=== PATIENT | female | born 1990 | race Caucasian/White ===

== ENCOUNTER 2020-01-25 23:05 | Emergency (ER) | payer BC, MEDICAID, SELFPAY ==
[2020-01-25 23:14] VITALS: BP 149/84; PULSE 117; RESP 18; TEMP 38.3; O2SAT 97; BMI 21.2
--- NOTE | 2020-01-26 00:19 | USR_ITS ---
PROCEDURE INFORMATION: Exam: US Nonobstetric Pelvis; Complete Exam date and time: 01/26/2020 1:18 AM Age: 29 years old Clinical indication: Other: Chills, fever, and tachycardia; Additional info: 1 mo post ; Fever/tachycardia/pain TECHNIQUE: Imaging protocol: Transabdominal pelvic nonobstetric ultrasound. Complete exam. Real time ultrasound with image documentation. COMPARISON: No relevant prior studies available. FINDINGS: Uterus/cervix: The uterus measures 7.5 x 4.0 x 5.3 cm. The endometrium measures 4 mm. Right adnexa: The right ovary measures 2.5 x 1.3 x 1.9 cm. Vascular flow is demonstrated within the right ovary with color Doppler and duplex waveform sonography. PSV 11.5 cm/s, RI 0.44. Left adnexa: The left ovary measures 2.5 x 1.8 x 2.2 cm. Vascular flow is demonstrated within the left ovary with color Doppler and duplex waveform sonography. PSV 15.4 cm/s, RI 0.50. Free fluid: None. Bladder: Normal. US/US pelvic complete* [id number] IMPRESSION: There are no acute pelvic findings.
[2020-01-26 00:46] LABS: Alanine Aminotransferase 17 U/L (0-33); Albumin Level 4.6 g/dL (3.5-5.2); Alkaline Phosphatase 103 IU/L (35-105); Anion Gap 17.1 (5-19); Aspartate Amino Transferase 16 U/L (0-32); Blood Urea Nitrogen 14 mg/dL (6-20); Calcium 9.3 mg/dL (8.5-10.5); Carbon Dioxide 24 mmol/L (22-29); Chloride 99 mmol/L (98-107); Globulin 2.9 g/dL (1.3-4.6); Glomerular Filtration Rate 100.4 mL/min (90-130); Glucose 131 mg/dL (65-115); Osmolality Calculated 280 mOsm/kg (285-295); Potassium 4.1 mmol/L (3.5-5.1); Sodium 136 mmol/L (136-145); Total Bilirubin 0.3 mg/dL (0.15-1.2); Total Protein 7.5 g/dL (6.6-8.7)
[2020-01-26 00:47] LABS: Basophils % 0.2 %; Eosinophils # 0.2 10^3/uL (0.0-0.8); Eosinophils % 1.1 %; Hematocrit 36.3 % (37.0-47.0); Hemoglobin 11.2 g/dL (11.5-15.3); Lactate (Lactic Acid level) 1.9 mmol/L (0.5-2.2); Lymphocytes # 1.7 10^3/uL (0.8-4.8); Lymphocytes % 9.9 %; Mean Corpuscular HGB Conc 30.9 g/dL (30.0-36.0); Mean Corpuscular Hemoglobin 28.3 pg (28.0-34.0); Mean Corpuscular Volume 91.7 fL (81-99); Mean Platelet Volume 9.2 fL (7.4-10.4); Neutrophils # 13.8 10^3/uL (1.8-7.7); Neutrophils % 82.4 %; Nucleated Red Blood Cells % 0 %; Platelet Count 332 10^3/cmm (130-400); Red Blood Count 3.96 10^6/uL (4.1-5.3); Red Cell Distribution Width 14.9 % (12.1-15.1); White Blood Count 16.8 10^3/uL (4.0-10.0)
[2020-01-26 00:58] LABS: HCG, Serum Qual Negative (Negative)
--- NOTE | 2020-01-26 01:22 | CTR_ITS ---
PROCEDURE INFORMATION: Exam: CT Abdomen And Pelvis With Contrast Exam date and time: 01/26/2020 1:56 AM Age: 29 years old Clinical indication: Fever; Abdominal pain; Generalized; Patient HX: PT is 1 month ; Additional info: Abdominal pain/post ; Febrile, tachy TECHNIQUE: Imaging protocol: Computed tomography of the abdomen and pelvis with intravenous contrast. Radiation optimization: All CT scans at this facility use at least one of these dose optimization techniques: automated exposure control; mA and/or kV adjustment per patient size (includes targeted exams where dose is matched to clinical indication); or iterative reconstruction. Contrast material: OMNIK 300; Contrast volume: 75 ml; Contrast route: 20G; COMPARISON: US transvaginal [id number] 01/26/2020 1:00 AM FINDINGS: Liver: Normal. No mass. Gallbladder and bile ducts: Normal. No calcified stones. No ductal dilation. Pancreas: Normal. No ductal dilation. Spleen: Normal. No splenomegaly. Adrenals: Normal. No mass. Kidneys and ureters: There is mild hydronephrosis and hydroureter seen on the right. There are no obstructing ureteral calculi seen. Some subtle hypoperfusion is seen in the upper pole of the left kidney. This finding raises some suspicion for pyelonephritis. Stomach and bowel: Unremarkable. No obstruction. No mucosal thickening. Appendix: No evidence of appendicitis. Intraperitoneal space: Unremarkable. No free air. No significant fluid collection. Vasculature: Unremarkable. No abdominal aortic aneurysm. Lymph nodes: Unremarkable. No enlarged lymph nodes. Bladder: Unremarkable as visualized. Reproductive: Unremarkable as visualized. Bones/joints: Unremarkable. No acute fracture. Soft tissues: Unremarkable. CT/CT abdomen pelvis w con* [id number] IMPRESSION: 1. Subtle hypoperfusion seen in the upper pole of the left kidney, findings that raise some suspicion for pyelonephritis. 2. There is mild hydronephrosis and hydroureter present on the right without evidence of obstructing ureteral calculi. Total DLP: 562.06 mGy-cm Radiation Dose CTDIVOL = (mGy): DLP = 562.06 (mGy-cm)
[2020-01-26 01:37] VITALS: BP 116/68; PULSE 101; RESP 16; O2SAT 97
[2020-01-26] MEDS: sodium chloride 0.9% 1,000 ML 999 ML IV (01:37)
[2020-01-26 02:05] VITALS: BP 123/69; PULSE 78; RESP 18; O2SAT 96
--- NOTE | 2020-01-26 02:06 | PC.NURSE ---
DR WHIPPLE IN ROOM, FLUIDS INFUSING, AT BEDSIDE. CONTINUE TO MONITOR
[2020-01-26] MEDS: iohexol 300 mg/mL 100 mL Btl IV (02:17)
[2020-01-26 03:24] VITALS: BP 131/70; PULSE 99; RESP 18; TEMP 37.6; O2SAT 100
[2020-01-26 03:50] LABS: Add Urine Microscopic? NO
[2020-01-26 03:57] LABS: Bilirubin Urine Neg (NEGATIVE); Blood Urine Neg (Negative); Glucose Urine UA Norm (Normal); Ketones Urine Negative (Negative); Leukocyte Esterase Urine 1+ (Negative); Nitrate Urine Negative (Negative); Protein Urine Neg (Negative); Urine Color Yellow (Yellow); Urobilinogen Urine Norm (Negative); pH Urine 6 (5-7)
[2020-01-26] MEDS: ketorolac 30 mg/mL INJ IVP (04:01)
[2020-01-26 04:02] VITALS: RESP 18
[2020-01-26] MEDS: cefTRIAXone 1,000 MG in sodium chloride 0.9% (plus) 50 ML 100 MG IV (04:02)
[2020-01-26] MEDS: morphine 4 mg/mL SDV 1 mL IVP (04:02)
[2020-01-26 04:10] VITALS: BP 118/62; PULSE 80; RESP 16; O2SAT 97
[2020-01-26 04:42] VITALS: BP 118/62; PULSE 106; RESP 16; TEMP 37.7; O2SAT 96
--- NOTE | 2020-01-26 17:28 | W.ED.FEVER ---
HPI - Fever General: Chief Complaint: Fever Stated Complaint: poss infection post Time Seen by Provider: 01/26/20 01:44 History of Present Illness: HPI Narrative: 29-year-old female who delivered vaginally 4 weeks ago. She states that she got over 70 stitches to her perineum after significant tearing. She has had no bleeding or discharge from this area. She is worried because she has had some belly pain, mainly right-sided, and a fever this evening. This is increased from prior MD elicited complaint: fever and weakness Measured temperature: 101.5 F Relieving factors: ibuprofen Associated symptoms: Reports abdominal pain, chills, dysuria and nausea; Deny chest pain, cough, headache(s), nasal congestion, rash, stiffness or vaginal discharge Review of Systems Const: Reports: fever(s) and chills Eyes: Denies: change in vision or blurry vision ENMT: Denies: nasal congestion Card: Denies: chest pain, palpitations or irregular heart rhythm Resp: Denies: dyspnea, productive cough, non-productive cough or wheezing GI: Reports: abdominal pain and nausea : Reports: dysuria; Denies: vaginal discharge Musc: Reports: back pain; Denies: neck pain, joint redness or joint warmth Skin/Breast: Denies: rash, pruritus or erythema Neuro: Denies: headache(s), dizziness or vertigo Psych: Denies: anxiety PFSH ED PFSH: Social History Smoking and tobacco status: never smoked Physical Exam Const: GENERAL APPEARANCE: well developed ORIENTATION/CONSCIOUSNESS: Yes oriented to person, Yes oriented to place and Yes oriented to time HENMT: COMMON NORMALS: normocephalic, external ears normal and Normal external nose present HEAD & SCALP: normocephalic FACE & SINUS: normal facial exam NOSE: Normal external nose present and No nasal discharge present EXTERNAL EAR: Yes external ears normal MOUTH: tongue normal Eye: COMMON NORMALS: Equal, round and reactive pupils present, EOMs intact bilaterally and conjunctivae normal EYELID: eyelids normal CONJUNCTIVA: Yes conjunctivae normal PUPIL: Yes Equal, round and reactive pupils present Neck/C-Spine: COMMON NORMALS: full ROM GENERAL: No tracheal deviation Chest: COMMONS NORMALS: normal inspection of the chest CHEST: No tenderness Resp: COMMON NORMALS: clear to auscultation bilaterally EFFORT & INSPECTION: No tachypneic, No respiratory distress, No retractions, No uses accessory muscles and No tracheal deviation AUSCULTATION: clear to auscultation bilaterally, no rhonchi, no wheezes and lung sounds not diminished Cardio: COMMON NORMALS: regular rate and regular rhythm RATE: regular rate RHYTHM: regular rhythm HEART SOUNDS: no murmurs PERIPHERAL PULSES: radial pulses present GI: INSPECTION: No abdominal distension AUSCULTATION: No Hyperactive bowel sounds present and No Hypoactive bowel sounds present PALPATION: Yes Tenderness to palpation present (GI) (Suprapubic and right lower quadrant), No Guarding due to palpation present (GI) and No Rigid due to palpation PERCUSSION: no dullness to percussion and no tympanic to percussion : BLADDER/KIDNEY EXAM: Yes CVA tenderness Back/Pelvis: GENERAL BACK: Yes CVA tenderness CVA tenderness: right Neuro: SENSORIUM/ORIENTATION: Yes oriented to person, Yes oriented to place and Yes oriented to time Psych: COMMON NORMALS: mental status grossly normal Skin: COMMON NORMALS: no rashes or lesions noted GENERAL SKIN EXAM: no rashes or lesions noted Course Vital Signs: Vital signs: Vital Signs Temperature 99.9 F H 01/26/20 04:42 Pulse Rate 106 H 01/26/20 04:42 Respiratory Rate 16 01/26/20 04:42 Blood Pressure 118/62 01/26/20 04:42 Pulse Oximetry 96 01/26/20 04:42 MDM - Fever MDM Narrative: Medical decision making narrative: 29-year-old female vaginal delivery at 4 weeks. She presents with a significant fever and chills. She has some belly pain as well. The concern was initially for retained products of conception, ultrasound was essentially negative for this. She is also had no vaginal bleeding or discharge. Examination of her perineum revealed no evidence of infection with her repair. CT reveals no inflammatory changes around the uterus. There is inflammatory change however around the right kidney suggestive of pyelonephritis. Urinalysis reveals a urinary tract infection. She is not vomiting. She has had 1 g of Rocephin and some fluid here. She is feeling improved. She will go home on cefdinir. Lab Data: Labs: Lab Results 01/26/20 01/26/20 01/26/20 Range/Units 00:20 00: 00:20 WBC 16.8 H (4.0-10.0) 10^3/ uL RBC 3.96 L (4.1-5.3) 10^6/u L Hgb 11.2 L (11.5-15.3) g/dL Hct 36.3 L (37.0-47.0) % MCV 91.7 (81-99) fL MCH 28.3 (28.0-34.0) pg MCHC 30.9 (30.0-36.0) g/dL RDW 14.9 (12.1-15.1) % Plt Count 332 (130-400) 10^3/c mm MPV 9.2 (7.4-10.4) fL Neut % (Auto) 82.4 % Lymph % (Auto) 9.9 % [place] % (Auto) 6.0 % Eos % (Auto) 1.1 % Baso % (Auto) 0.2 % Neut # (Auto) 13.8 H (1.8-7.7) 10^3/u L Lymph # (Auto) 1.7 (0.8-4.8) 10^3/u L [place] # (Auto) 1.0 H (0.2-0.9) 10^3/u L Eos # (Auto) 0.2 (0.0-0.8) 10^3/u L Baso # (Auto) 0.0 (0.0-0.1) 10^3/u L Nucleated RBC % (a uto) 0 % Nucleated RBCs # 0.0 /100WBC Sodium 136 (136-145) mmol/L Potassium 4.1 (3.5-5.1) mmol/L Chloride 99 (98-107) mmol/L Carbon Dioxide 24 (22-29) mmol/L Anion Gap 17.1 (5-19) BUN 14 (6-20) mg/dL Creatinine 0.7 (0.5-0.9) mg/dL GFR Calculation 100.4 (90-130) mL/min Glucose 131 H (65-115) mg/dL Calculated Osmolal ity 280 L (285-295) mOsm/k g Lactate 1.9 (0.5-2.2) mmol/L Calcium 9.3 (8.5-10.5) mg/dL Total Bilirubin 0.3 (0.15-1.2) mg/dL AST 16 (0-32) U/L ALT 17 (0-33) U/L Alkaline Phosphata se 103 (35-105) IU/L Total Protein 7.5 (6.6-8.7) g/dL Albumin 4.6 (3.5-5.2) g/dL Globulin 2.9 (1.3-4.6) g/dL HCG, Qual (Negative) Urine Color (Yellow) Urine Appearance (CLEAR) Urine pH (5-7) Ur Specific Gravit y (1.005-1.030) Urine Protein (Negative) Urine Glucose (UA) (Normal) Urine Ketones (Negative) Urine Blood (Negative) Urine Nitrate (Negative) Urine Bilirubin (NEGATIVE) Urine Urobilinogen (Negative) mg/dL Ur Leukocyte [place] ase (Negative) 01/26/20 01/26/20 Range/Units 00:20 03:30 WBC (4.0-10.0) 10^3/ uL RBC (4.1-5.3) 10^6/u L Hgb (11.5-15.3) g/dL Hct (37.0-47.0) % MCV (81-99) fL MCH (28.0-34.0) pg MCHC (30.0-36.0) g/dL RDW (12.1-15.1) % Plt Count (130-400) 10^3/c mm MPV (7.4-10.4) fL Neut % (Auto) % Lymph % (Auto) % [place] % (Auto) % Eos % (Auto) % Baso % (Auto) % Neut # (Auto) (1.8-7.7) 10^3/u L Lymph # (Auto) (0.8-4.8) 10^3/u L [place] # (Auto) (0.2-0.9) 10^3/u L Eos # (Auto) (0.0-0.8) 10^3/u L Baso # (Auto) (0.0-0.1) 10^3/u L Nucleated RBC % (a uto) % Nucleated RBCs # /100WBC Sodium (136-145) mmol/L Potassium (3.5-5.1) mmol/L Chloride (98-107) mmol/L Carbon Dioxide (22-29) mmol/L Anion Gap (5-19) BUN (6-20) mg/dL Creatinine (0.5-0.9) mg/dL GFR Calculation (90-130) mL/min Glucose (65-115) mg/dL Calculated Osmolal ity (285-295) mOsm/k g Lactate (0.5-2.2) mmol/L Calcium (8.5-10.5) mg/dL Total Bilirubin (0.15-1.2) mg/dL AST (0-32) U/L ALT (0-33) U/L Alkaline Phosphata se (35-105) IU/L Total Protein (6.6-8.7) g/dL Albumin (3.5-5.2) g/dL Globulin (1.3-4.6) g/dL HCG, Qual Negative (Negative) Urine Color Yellow (Yellow) Urine Appearance Sl cloudy A (CLEAR) Urine pH 6 (5-7) Ur Specific Gravit y 1.010 (1.005-1.030) Urine Protein Neg (Negative) Urine Glucose (UA) Norm (Normal) Urine Ketones Negative (Negative) Urine Blood Neg (Negative) Urine Nitrate Negative (Negative) Urine Bilirubin Neg (NEGATIVE) Urine Urobilinogen Norm (Negative) mg/dL Ur Leukocyte [place] ase 1+ H (Negative) Discharge Plan Discharge Patient Disposition: Home, Self-Care Clinical Impression: Pyelonephritis Condition: Stable Prescriptions: New cefdinir 300 mg capsule 300 mg PO BID 7 Days Qty: 14 RF: 0 [place] 7.5-325 mg tablet 1 tab PO Q8H PRN (Reason: pain) Qty: 10 RF: 0 No Action ibuprofen 800 mg Tablet 800 mg PO Q8H PRN (Reason: Pain) RF: 0 acetaminophen 500 mg Tablet 500 mg PO Q8H PRN (Reason: Pain) RF: 0 ferrous sulfate 325 mg (65 mg iron) Tablet 325 mg PO BID RF: 0 oxycodone 5 mg Tablet 5 mg PO Q6H PRN (Reason: Pain) RF: 0 Discharge Orders: Discharge Order (Routine); Ordered 01/26/20 Ordered By: Ronaldo Noble Referrals: Mari Cline DO [Primary Care Provider] - 4-7 days Discharge Diet: Advance as tolerated Discharge Activity: Increase activity as tolerated Patient Instructions: Acute Pyelonephritis (ED) Activity Restrictions/Additional Instructions: Return for fever greater than 100 despite 2-3 doses of antibiotics, worsening pain despite treatment, brisk vaginal bleeding or discharge, vomiting liquids or medications, other concerning symptoms. Discharge Date/Time: 01/26/20 04:44 Coding Level of Care Code ED Telephone Service Adviser for Yaz Fwd Exam Comprehensive
== END 2020-01-26 04:44 | disposition home or self-care (01) ==
PROVIDERS: Physician Assistant; Emergency Provider Emergency Medicine; PCP Family Medicine
DX: N12 Tubulo-interstitial nephritis, not specified as acute or chronic (principal)
CPT/HCPCS: 12345; 74177; 76856; 80053; 81003; 83605; 84703; 85025; 87040; 96365; 96375; 99283; 99284; J0696; J1885; J2270; J7030; Q9967

== ENCOUNTER → 2020-05-19 18:00 | Outpatient (BNVA) | payer BC, MEDICAID, SELFPAY | PROVIDERS: PCP Family Medicine; Visit Provider Nurse Practitioner Family | DX: Z20.828 Contact with and (suspected) exposure to other viral communicable diseases (principal) | CPT/HCPCS: 87635 ==

== ENCOUNTER 2021-01-31 22:04 | Emergency (ER) | payer BC, MEDICAID, SELFPAY ==
[2021-01-31 22:38] VITALS: BP 119/76; PULSE 74; RESP 16; TEMP 37; O2SAT 97; BMI 19.5
--- NOTE | 2021-01-31 23:28 | ED_ITS ---
HPI - Wound/Laceration General: Chief Complaint: Wound/Laceration Stated Complaint: bite LLE Time Seen by Provider: 01/31/21 23:28 History of Present Illness: HPI narrative: Patient is a 30-year-old female comes to the ED with possible spider bite to left leg. Patient noticed pain redness and swelling on posterior aspect of left thigh just above knee around 5 PM tonight. She did not see any insect or spider bite her. She denies any other symptoms currently. Denies any past history of MRSA or staph infections. Associated symptoms: Denies chills, fever(s), nausea or vomiting Review of Systems Const: Denies: fever(s), chills or fatigue Eyes: Denies: change in vision or eye discomfort ENMT: Denies: throat pain, odynophagia, nasal discharge or nasal congestion Card: Denies: chest pain, palpitations, edema, swelling of feet/ankles, dyspnea on exertion or orthopnea Resp: Denies: dyspnea, productive cough or non-productive cough GI: Denies: abdominal pain, nausea, vomiting, diarrhea, constipation or hematochezia : Denies: flank pain, dysuria or hematuria Musc: Denies: neck pain, back pain or extremity swelling Skin/Breast: Reports: new lesions (Possible spider bite to left thigh); Denies: rash Neuro: Denies: headache(s), numbness in extremities or weakness in extremities PFSH ED PFSH: Social History Smoking and tobacco status: never smoked Female Reproductive History: Date of last menstrual period: 01/01/21 Physical Exam Const: COMMON NORMALS: no acute distress, patient oriented x3, healthy appearing and alert GENERAL APPEARANCE: cooperative and comfortable HENMT: COMMON NORMALS: normocephalic HEAD & SCALP: normocephalic MOUTH: Normal oral and palatal mucosa present THROAT: posterior oropharynx normal and uvula midline Neck/C-Spine: COMMON NORMALS: supple GENERAL: Yes normal visual inspection Resp: COMMON NORMALS: normal respiratory effort, No retractions, No use of accessory muscles and clear to auscultation bilaterally AUSCULTATION: clear to auscultation bilaterally Cardio: COMMON NORMALS: regular rate, regular rhythm, S1 normal heart sound present, S2 normal heart sound present, No gallops present (Cardio), No clicks present (Cardio), No murmurs present (Cardio) and Peripheral pulses 2+ througho ut RATE: regular rate RHYTHM: regular rhythm HEART SOUNDS: S1 normal heart sound present and S2 normal heart sound present PERIPHERAL PULSES: Peripheral pulses 2+ throughout GI: COMMON NORMALS: Normal to inspection, nondistended, normoactive bowel sounds present, Soft to palpation, non-tender and no masses PALPATION: Yes Soft to palpation : COMMON NORMALS: Yes no CVA tenderness BLADDER/KIDNEY EXAM: Yes no CVA tenderness Back/Pelvis: COMMON NORMALS: no CVA tenderness Extremity: NARRATIVE EXTREMITY EXAM: Left leg?posterior aspect of thigh just superior to knee?patient has a raised erythemic rash that is circular in shape. The middle of rash has some slight ecchymosis and possible small puncture wound. Rashes tender upon palpation but no warmth or purulent drainage noted. Findings suggestive of brown recluse bite with no cellulitis developing yet. GENERAL: Yes normal exam except as noted Neuro: COMMON NORMALS: patient oriented x3 and moves all extremities SENSORIUM/ORIENTATION: Yes alert Skin: NARRATIVE SKIN EXAM: Left leg?posterior aspect of thigh just superior to knee?patient has a raised erythemic rash that is circular in shape. The middle of rash has some slight ecchymosis and possible small puncture wound. Rashes tender upon palpation but no warmth or purulent drainage noted. Findings suggestive of brown recluse bite with no cellulitis developing yet. Course Vital Signs: Vital signs: Vital Signs Temperature 98.6 F 01/31/21 22:38 Pulse Rate 74 01/31/21 22:38 Respiratory Rate 16 01/31/21 22:38 Blood Pressure 119/76 01/31/21 22:38 Pulse Oximetry 97 01/31/21 22:38 MDM - Wound/Laceration MDM Narrative: Medical decision making narrative: Patient is a 30-year-old female in no acute distress or pain. Her vitals are stable. Exam findings suggestive of brown recluse spider bite on left leg. Patient was discharged home with a prescription for Bactrim. Return to ED precautions given. Follow- up with PCP in 7 to 10 days reevaluation. Patient understood with plan. Discharge Plan Discharge Patient Disposition: Home Clinical Impression: Brown recluse spider bite Qualifiers: Encounter type: initial encounter Injury intent: accidental or unintentional Qualified Code(s): T63.331A - Toxic effect of venom of brown recluse spider, accidental (unintentional), initial encounter Condition: Stable Prescriptions: New Bactrim DS 800-160 mg tablet 1 tab PO BID 7 Days Qty: 14 RF: 0 No Action control PO RF: 0 ibuprofen 800 mg Tablet 800 mg PO Q8H PRN (Reason: Pain) RF: 0 ferrous sulfate 325 mg (65 mg iron) Tablet 325 mg PO BID RF: 0 oxycodone 5 mg Tablet 5 mg PO Q6H PRN (Reason: Pain) RF: 0 Discharge Orders: Discharge ED (Routine); Ordered 01/31/21 Ordered By: River Oliva Referrals: Mari Cline DO [Primary Care Provider] - Discharge Diet: Regular Discharge Activity: Resume usual activity Patient Instructions: Brown Recluse Spider Bite (ED) Activity Restrictions/Additional Instructions: Follow-up with medical provider as directed in 7 days for reevaluation. Take medications as prescribed. Return to the ER or your medical provider if condition worsens. Please read and understand discharge instructions. Thank you for choosing [facility] for your healthcare needs today. Please realize this is an emergency room and that we are providing you with a medical screening exam and this may not be complete and all inclusive of all the testing and or work up that you may need to determine your ailment or severity of your illness. It is very important that you follow up as instructed or that you return to the Emergency Department should you have concerns or if your condition changes or worsens in any way. Coding Level of Care Code ED Public Address System Operator for Yaz Chow Exam Comprehensive
[2021-02-01] MEDS: sulfamethoxazole-trimeth DS 160-800 mg Tablet 1 TAB PO (00:11)
== END 2021-02-01 00:14 | disposition home or self-care (01) ==
PROVIDERS: Emergency Provider Physician Assistant; PCP Family Medicine
DX: T63.331A Toxic effect of venom of brown recluse spider, accidental (unintentional), initial encounter (principal)
CPT/HCPCS: 99283; A6446

== ENCOUNTER 2021-02-05 20:55 | Observation (INO) | payer BC, MEDICAID, SELFPAY ==
--- NOTE | 2021-02-05 21:20 | W.ED.SKABFB ---
HPI - Skin/Abscess/Foreign Bdy General: Chief complaint: Skin/Abscess/Foreign Body Stated complaint: spider bite Time Seen by Provider: 02/05/21 21:20 Source: patient Mode of arrival: ambulatory Limitations: no limitations History of Present Illness: HPI narrative: Patient is a 30-year-old female who presents to ED today for reevaluation regarding a skin wound to her left lower extremity. Patient was seen at our facility approximately 5 days ago for concerns of a spider bite. She tells me she was placed on Bactrim. Patient then followed up with her primary care provider who switched her antibiotics to Clindamycin. She has been on antibiotics over the past 5 days and continues to worsen. Significant other in the room concerned because redness has spread proximally 2 to 3 inches over the past 24 hours. Patient is complaining of severe pain and burning. She states the day she noticed the lesion she had sit down in some grass wearing jeans and states she felt something bite her. Patient not been running fevers. No chills. No vomiting. Denies ever seeing an attached tick to the area. MD complaint: rash, insect bite/sting and lesion Onset (ago): day(s) Tetanus up to date: yes Location: LLE Severity: moderate Quality: burning Pain Consistency: constant Relieving factors: none Exacerbating factors: none Context: other (possible insect bite) Associated symptoms: Reports no associated symptoms; Deny chills, fever(s), nausea or vomiting Treatments prior to arrival: antibiotic Review of Systems Const: Denies: fever(s), chills, body aches, change in appetite, change in weight, fatigue, malaise or night sweats Eyes: Denies: change in vision or blurry vision ENMT: Denies: throat pain or odynophagia Card: Denies: chest pain Resp: Denies: dyspnea GI: Denies: abdominal pain, nausea, vomiting or diarrhea Musc: Reports: extremity pain; Denies: neck pain, back pain, extremity swelling, joint pain, joint swelling, joint redness or joint warmth Skin/Breast: Reports: new lesions Neuro: Reports: difficulty walking (secondary to pain); Denies: numbness in extremities, weakness in extremities or sensory changes PFSH ED PFSH: Social History Smoking and tobacco status: never smoked Female Reproductive History: Date of last menstrual period: 01/01/21 Physical Exam Const: COMMON NORMALS: no acute distress, average body habitus, patient oriented x3, no limitations, healthy appearing, alert and well nourished Resp: COMMON NORMALS: normal respiratory effort and clear to auscultation bilaterally AUSCULTATION: clear to auscultation bilaterally Cardio: COMMON NORMALS: regular rate and regular rhythm RATE: regular rate RHYTHM: regular rhythm Extremity: EXTREMITY IMAGE (FRONT): 1. large area of sharply demarcated erythema and warmth (measuring approximately 15cm x 8cm); no lymphangitic streaking; there is a central area of hemorrhagic tissue/necrosis; no drainage; no fluctuance to suggest abscess; very tender to touch Neuro: COMMON NORMALS: patient oriented x3, moves all extremities, no focal motor deficits and no sensory deficits noted SENSORIUM/ORIENTATION: Yes alert Skin: NARRATIVE SKIN EXAM: see extremity assessment for pertinent skin findings Course Vital Signs: Vital signs: Vital Signs Temperature 98.1 F 02/05/21 21:24 Pulse Rate 81 02/05/21 21:24 Respiratory Rate 18 02/05/21 21:24 Blood Pressure 144/89 02/05/21 21:24 Pulse Oximetry 99 02/05/21 21:24 MDM - Skin/Abscess/Foreign Bdy MDM Narrative: Medical decision making narrative: Patient has continually progressive erythema despite appropriate antibiotic coverage. She has failed outpatient therapy. Discussed possibility of getting patient into wound care for treatment however with it being Tuesday and going into the weekend I think this would be unlikely. I spoke with hospitalist who is agreeable to admission. Dr. Ledesma also saw patient and agrees with plan. Lab Data: Labs: Lab Results 02/05/21 02/05/21 02/05/21 Range/Units 21:59 21:59 21:59 WBC 12.9 H (4.0-10.0) 10^3/ uL RBC 4.26 (4.1-5.3) 10^6/u L Hgb 13.0 (11.5-15.3) g/dL Hct 39.0 (37.0-47.0) % MCV 91.5 (81-99) fL MCH 30.5 (28.0-34.0) pg MCHC 33.3 (30.0-36.0) g/dL RDW 13.2 (12.1-15.1) % Plt Count 292 (130-400) 10^3/c mm MPV 9.4 (7.4-10.4) fL Neut % (Auto) 67.1 % Lymph % (Auto) 24.9 % Moody % (Auto) 6.1 % Eos % (Auto) 1.3 % Baso % (Auto) 0.3 % Neut # (Auto) 8.63 H (1.8-7.7) 10^3/u L Lymph # (Auto) 3.2 (0.8-4.8) 10^3/u L Moody # (Auto) 0.8 (0.2-0.9) 10^3/u L Eos # (Auto) 0.2 (0.0-0.8) 10^3/u L Baso # (Auto) 0.0 (0.0-0.1) 10^3/u L Nucleated RBC % (a uto) 0 % Nucleated RBCs # 0.0 /100WBC Sodium 139 (136-145) mmol/L Potassium 3.8 (3.5-5.1) mmol/L Chloride 103 (98-107) mmol/L Carbon Dioxide 24 (22-29) mmol/L Anion Gap 15.8 (5-19) BUN 10 (6-20) mg/dL Creatinine 0.6 (0.5-0.9) mg/dL GFR Calculation 119.0 (90-130) mL/min Glucose 141 H (65-115) mg/dL Calculated Osmolal ity 289 (285-295) mOsm/k g Lactic Acid 1.5 (0.5-2.2) mmol/L Calcium 9.0 (8.5-10.5) mg/dL Total Bilirubin 0.4 (0.15-1.2) mg/dL AST 13 (0-32) U/L ALT 10 (0-33) U/L Alkaline Phosphata se 68 (35-105) IU/L C-Reactive Protein 1.9 (0.0-4.9) mg/L Total Protein 7.2 (6.6-8.7) g/dL Albumin 4.2 (3.5-5.2) g/dL Globulin 3.0 (1.3-4.6) g/dL Imaging Data^: CT L LE: Radiologist's impression: [id number] [place], [place] [id number] Scan ReportSigned Patient: Jerson Mullen #: [id number]: [id number]#:[id number]/Sex: 30 / FADM Date: 02/05/21Loc: ERRoom/Bed:Attending Dr: Ordering Provider/Ordering MD: Samia Partida Date of Service: 02/05/21 Procedure(s): CT lower leg LT w con [id number] Accession Number(s): [id number] Report Number: [id number] PROCEDURE INFORMATION: Exam: CT Left Lower Extremity With Contrast Exam date and time: 02/05/2021 11:17 PM Age: 30 years old Clinical indication: Pain; Cellulitis and swelling, leg or foot; Knee and thigh; Patient HX: Possible brown recluse bite to left leg. Central bite josef to medial posterior aspect of knee. Redness and swelling extending medio-posteriorly from mid thigh to disal knee. ; Additional info: Redness/warmth; Possible spider bite TECHNIQUE: Imaging protocol: CT of the Left lower extremity with intravenous contrast was performed. Radiation optimization: All CT scans at this facility use at least one of these dose optimization techniques: automated exposure control; mA and/or kV adjustment per patient size (includes targeted exams where dose is matched to clinical indication); or iterative reconstruction. Contrast material: OMNI 300; Contrast volume: 95 ml; Contrast route: INTRAVENOUS (IV); COMPARISON: No relevant prior studies available. RADIATION DOSE METRICS: Total DLP (mGy-cm): 568.02 FINDINGS: Bones/joints: Normal. No acute fracture or dislocation. Soft tissues: Minimal strandy opacities are seen in the subcutaneous fat and fascia the distal left thigh medially and extending over the medial retinacula compatible with subcutaneous edema. Cellulitis cannot be excluded. Focal subcutaneous low-attenuation seen in the popliteal fossa compatible with a small subcutaneous fluid collection. A developing abscess cannot be entirely excluded. This likely corresponds to the bite wound. It measures approximately 1.9 cm craniocaudal dimension by 0.8 cm transverse dimension by 0.[address]/CT lower leg LT w con [id number] IMPRESSION: 1. Subcutaneous strandy opacity seen in the medial aspect of the distal left thigh extending into the left knee medially. 2. Subcutaneous fluid attenuation seen in the popliteal fossa likely corresponding to the bite wound. A developing abscess cannot be entirely excluded. Radiation Dose CTDIVOL = (mGy): DLP = 568.02 (mGy-cm) Dictated By:Jeffrey Valdez MDSigned By:Jeffrey Valdez MDSigned Date/Time:02/06/21 0112DD/ 011 Discharge Plan Discharge Patient Disposition: Admitted As Inpatient Clinical Impression: Brown recluse spider bite Condition: Stable Prescriptions: No Action control PO RF: 0 ibuprofen 800 mg Tablet 800 mg PO Q8H PRN (Reason: Pain) RF: 0 ferrous sulfate 325 mg (65 mg iron) Tablet 325 mg PO BID RF: 0 oxycodone 5 mg Tablet 5 mg PO Q6H PRN (Reason: Pain) RF: 0 Bactrim DS 800-160 mg tablet 1 tab PO BID 7 Days Qty: 14 RF: 0 Referrals: Mari Cline DO [Primary Care Provider] - Coding Level of Care Code 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
[2021-02-05 21:24] VITALS: BP 144/89; PULSE 81; RESP 18; TEMP 36.7; O2SAT 99; BMI 23.3
[2021-02-05 22:09] LABS: Basophils % 0.3 %; Eosinophils # 0.2 10^3/uL (0.0-0.8); Eosinophils % 1.3 %; Lymphocytes # 3.2 10^3/uL (0.8-4.8); Lymphocytes % 24.9 %; Mean Corpuscular HGB Conc 33.3 g/dL (30.0-36.0); Mean Corpuscular Hemoglobin 30.5 pg (28.0-34.0); Mean Corpuscular Volume 91.5 fL (81-99); Mean Platelet Volume 9.4 fL (7.4-10.4); Monocytes # 0.8 10^3/uL (0.2-0.9); Monocytes % 6.1 %; Neutrophils # 8.63 10^3/uL (1.8-7.7); Neutrophils % 67.1 %; Nucleated Red Blood Cells % 0 %; Platelet Count 292 10^3/cmm (130-400); Red Blood Count 4.26 10^6/uL (4.1-5.3); Red Cell Distribution Width 13.2 % (12.1-15.1); White Blood Count 12.9 10^3/uL (4.0-10.0)
[2021-02-05 22:26] LABS: Alanine Aminotransferase 10 U/L (0-33); Albumin Level 4.2 g/dL (3.5-5.2); Alkaline Phosphatase 68 IU/L (35-105); Anion Gap 15.8 (5-19); Aspartate Amino Transferase 13 U/L (0-32); Blood Urea Nitrogen 10 mg/dL (6-20); C Reactive Protein 1.9 mg/L (0.0-4.9); Carbon Dioxide 24 mmol/L (22-29); Chloride 103 mmol/L (98-107); Creatinine Clr Calc Pharmacy 136.3837; Glucose 141 mg/dL (65-115); Osmolality Calculated 289 mOsm/kg (285-295); Potassium 3.8 mmol/L (3.5-5.1); Sodium 139 mmol/L (136-145); Total Bilirubin 0.4 mg/dL (0.15-1.2); Total Protein 7.2 g/dL (6.6-8.7)
[2021-02-05 22:27] LABS: Lactic Sepsis W/Reflex 1.5 mmol/L (0.5-2.2)
--- NOTE | 2021-02-05 23:17 | CTR_ITS ---
PROCEDURE INFORMATION: Exam: CT Left Lower Extremity With Contrast Exam date and time: 02/05/2021 11:17 PM Age: 30 years old Clinical indication: Pain; Cellulitis and swelling, leg or foot; Knee and thigh; Patient HX: Possible brown recluse bite to left leg. Central bite josef to medial posterior aspect of knee. Redness and swelling extending medio-posteriorly from mid thigh to disal knee. ; Additional info: Redness/warmth; Possible spider bite TECHNIQUE: Imaging protocol: CT of the Left lower extremity with intravenous contrast was performed. Radiation optimization: All CT scans at this facility use at least one of these dose optimization techniques: automated exposure control; mA and/or kV adjustment per patient size (includes targeted exams where dose is matched to clinical indication); or iterative reconstruction. Contrast material: OMNI 300; Contrast volume: 95 ml; Contrast route: INTRAVENOUS (IV); COMPARISON: No relevant prior studies available. RADIATION DOSE METRICS: Total DLP (mGy-cm): 568.02 FINDINGS: Bones/joints: Normal. No acute fracture or dislocation. Soft tissues: Minimal strandy opacities are seen in the subcutaneous fat and fascia the distal left thigh medially and extending over the medial retinacula compatible with subcutaneous edema. Cellulitis cannot be excluded. Focal subcutaneous low-attenuation seen in the popliteal fossa compatible with a small subcutaneous fluid collection. A developing abscess cannot be entirely excluded. This likely corresponds to the bite wound. It measures approximately 1.9 cm craniocaudal dimension by 0.8 cm transverse dimension by 0.[address]/CT lower leg LT w con [id number] IMPRESSION: 1. Subcutaneous strandy opacity seen in the medial aspect of the distal left thigh extending into the left knee medially. 2. Subcutaneous fluid attenuation seen in the popliteal fossa likely corresponding to the bite wound. A developing abscess cannot be entirely excluded. Radiation Dose CTDIVOL = (mGy): DLP = 568.02 (mGy-cm)
[2021-02-05] MEDS: iohexol 300 mg/mL 100 mL Btl IV (23:49)
--- NOTE | 2021-02-06 01:30 | P.HP_ITS ---
Providers/Chief Complaint Primary Care Provider: Mari Cline DO Chief Complaint: spider bite History of Present Illness Carolyn Mullen is a 30 year old female presented to the hospital with chief complaint of worsening cellulitis. Patient is stating that on Tuesday she got bit while she was sitting outside. She was wearing jeans when started noticing itching around left knee, she went to the bathroom and noticed by which was consistent with spider bite. Of note, she has not seen any spider or tick on her skin. Initially it was a small pinpoint dark-colored rash which has progressively gotten worse she is denying fever, abdominal pain, shortness of breath, blurry vision, chest pain. Her PCP started on Bactrim which was switched to clindamycin. In last 24 hours her redness and itchiness has worsened and see discharge to come to the hospital for further evaluation. Diagnosis in the ER revealed revealed leukocytosis and a possible small abscess seen on CT scan which is not drainable no signs of sepsis procalcitonin not high she is currently being admitted for for IV antibiotics for possible phlegmon in the ER she received vancomycin. CT/CT lower leg LT w con [id number] IMPRESSION: 1. Subcutaneous strandy opacity seen in the medial aspect of the distal left thigh extending into the left knee medially. 2. Subcutaneous fluid attenuation seen in the popliteal fossa likely corresponding to the bite wound. A developing abscess cannot be entirely excluded. Review of Systems Const: Denies: fever(s) Eyes: Denies: change in vision ENMT: Denies: throat pain Card: Denies: chest pain Resp: Denies: dyspnea GI: Denies: abdominal pain : Denies: flank pain Musc: Denies: neck pain Skin/Breast: Reports: rash, pruritus, erythema, skin pain, skin tenderness, new lesions, changing lesions, non-healing lesions and lesions; Denies: skin swelling Neuro: Denies: headache(s) Psych: Denies: anxiety Endo: Denies: polyuria Sinan/Lymph: Denies: easy bruising All/Imm: Denies: urticaria Medications/Allergies Home Medications Medication Instructions Recorded Confirmed Last Taken Type ferrous sulfate 325 mg PO BID 01/25/20 05/19/20 Unknown History ibuprofen 800 mg PO Q8H PRN 01/25/20 05/19/20 Unknown History oxycodone 5 mg PO Q6H PRN 01/25/20 01/25/20 Unknown History control PO 05/19/20 Unknown History sulfamethoxazole-trimethoprim 1 tab PO BID 7 Days #14 tab 01/31/21 Unknown Rx [Bactrim DS] Allergies Allergy/AdvReac Type Severity Reaction Status Date / Time No Known Allergies Allergy Verified 01/31/21 22:46 PFSH Acute PFSH: Medical History No active medical problems Surgical History No pertinent past surgical history Family History Denies family history of CAD (coronary artery disease) Chronic kidney disease (CKD) Social History Smoking and tobacco status: never smoked Alcohol intake: never Substance/Drug Use: never Household members: spouse Housing: House Female Reproductive History: Date of last menstrual period: 01/15/21 Vitals/I&O/Wt Last Vital Signs Temp 98.1 F 02/05/21 21:24 Pulse 81 02/05/21 21:24 Resp 18 02/05/21 21:24 BP 144/89 02/05/21 21:24 Pulse Ox 99 02/05/21 21:24 Weight last 48 hrs Weight 65.771 kg Physical Exam Narrative: EXAM NARRATIVE: Young female who was sitting comfortably in her bed at the time of my interview and evaluation Large area of nonpurulent cellulitis around left knee for about 8x6 cm which was demarcated by a black marker, no lymphadenopathy in left groin No purulence noted, Central area of rash looks dark No vascular compromise S1, S2 sinus rhythm Nontender abdomen No acute respite distress EOMI, PERRLA GCS 15 awake alert oriented x3 Appropriate mood and affect No joint swelling Data : 02/05/21 21:59 02/05/21 21:59 Micro: Microbiology 02/05/21 23:10 Blood Culture - Preliminary Blood SPECIMEN COLLECTED 02/05/21 21:59 Blood Culture - Preliminary Blood SPECIMEN COLLECTED A&P Assessment and plan (1) Cellulitis: Status: Acute (2) Brown recluse spider bite: Status: Acute Qualifiers: Encounter type: initial encounter Injury intent: accidental or unintentional Qualified Code(s): T63.331A - Toxic effect of venom of brown recluse spider, accidental (unintentional), initial encounter Additional A&P Information Progressive cellulitis Start vancomycin, requested blood cultures, concerning for phlegmon appearance, considering dimensions I do not think this will be drainable, monitor for signs of worsening of her symptoms, start her on vancomycin She has not seen any spider, black spider bite symptoms not present, I would use anti-inflammatory ibuprofen with Tylenol and Benadryl for itching Regular diet DVT prophylaxis SCDs avoid anticoagulating agent in case she would require absce ss drainage, she also is low risk Full code Attestations Medical Necessity Statement*: Anticipating discharge within 48 hours needing IV antibiotics after failure of outpatient p.o. antibiotics for cellulitis Time Spent in Patient Care: (>than 50% of time spent in counselling and/or direct pt care on unit) . 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
[2021-02-06] MEDS: vancomycin 1,000 MG in sodium chloride 0.9% 250 ML 250 MG IV (01:52)
[2021-02-06 02:00] LABS: Creatine Phosphokinase 43 U/L (26-192)
[2021-02-06 02:08] LABS: Procalcitonin 0.11 ng/mL (0-0.5)
[2021-02-06] MEDS: diphenhydrAMINE 50 mg/mL SDV 1mL 25 MG IVP (02:46)
[2021-02-06] MEDS: sodium chloride 0.9% 1,000 ML 75 ML IV ×2 (03:47→17:56)
--- NOTE | 2021-02-06 04:03 | PC.PHAR ---
Vancomycin is dosed at 1500mg IVPB every 12 hours to produce a predicted trough level of 12.14 (population based pharmacokinetic analysis). A trough level has been ordered from the lab to be obtained before the fourth dose to confirm and adjust if needed.
[2021-02-06 04:15] VITALS: BP 97/60; PULSE 70; RESP 18; TEMP 37.1; O2SAT 97
[2021-02-06 04:55] VITALS: BP 114/75; PULSE 89; RESP 16; TEMP 36.6; O2SAT 98
[2021-02-06 07:50] VITALS: BP 114/68; PULSE 75; RESP 14; TEMP 37; O2SAT 98
[2021-02-06 08:31] LABS: Basophils % 0.2 %; Eosinophils # 0.1 10^3/uL (0.0-0.8); Hemoglobin 13.3 g/dL (11.5-15.3); Lymphocytes # 2.8 10^3/uL (0.8-4.8); Lymphocytes % 21.2 %; Mean Corpuscular HGB Conc 31.7 g/dL (30.0-36.0); Mean Corpuscular Hemoglobin 30.4 pg (28.0-34.0); Mean Corpuscular Volume 95.9 fL (81-99); Mean Platelet Volume 9.5 fL (7.4-10.4); Monocytes # 0.8 10^3/uL (0.2-0.9); Monocytes % 6.2 %; Neutrophils # 9.32 10^3/uL (1.8-7.7); Neutrophils % 71.1 %; Nucleated Red Blood Cells % 0 %; Platelet Count 288 10^3/cmm (130-400); Red Blood Count 4.38 10^6/uL (4.1-5.3); Red Cell Distribution Width 13.1 % (12.1-15.1); White Blood Count 13.1 10^3/uL (4.0-10.0)
[2021-02-06 08:49] LABS: C Reactive Protein 2.2 mg/L (0.0-4.9)
[2021-02-06] MEDS: diphenhydrAMINE 25 mg Capsule PO ×2 (09:12→22:11)
[2021-02-06] MEDS: ferrous sulfate EC 325 mg Tablet PO (09:12)
[2021-02-06] MEDS: vancomycin 1,500 MG/300 ML PIGGYBACK 150 MG IV ×2 (09:12→22:11)
--- NOTE | 2021-02-06 11:15 | PC.CHAP ---
Pastoral Care Encounter/Spiritual Assessment Type of Contact [] Declined pneumatic press hand visit [] Patient/Family/Request visit [] Outpatient visit [] Follow-up visit [] Physician referral [] Code/Alert [xx] Routine visit [] Staff referral [] Actively dying [] Patient sleeping [] Family support [] [] Out of room [] Palliative care [] [] Receiving care in room [] Pre-surgical visit [] Trauma [] Long length of stay [] ICU visit [] Other: Relational/Emotional Strength [xx] Patient feels connected with others/family/visitors/staff [] Distress [] Loneliness/isolation [] Abandonment Spirituality of Patient [] Person of Juju [] Attends Jewish of their Juju [xx] Believes in Prayer [] Reads Bible or Uatsdin materials [] There are Spiritual issues to be addressed Customer Service Analyst Interventions [xx] Prayer [xx] Active listening [xx] Non-anxious presence [] Spiritual/emotional support [] Crisis/trauma care [] Spiritual counseling [] Bereavement support [] Provided bereavement packet [] Provided Bible/devotional materials [] Provided toy/stuffed animal, coloring book to patient or family member [] Provided Communion [] Anointing/[place] [] Salvation [xx] Completed spiritual assessment [] Other: Impact on Illness or Injury [] Angry [] Fearful [] Anxious [] Often cries [] Exhaustion [] Unable to work [] Unable to attend religious [] Unable to walk/stand [] Unable to read [] Unable to drive [] Unable to eat/drink [] Unable to sleep [] Unable to be with family [] Patient intubated [] Other: Summary Patient was very upbeat about her situation. The spider bite has her leg swollen to make walking difficult. She stated she is thankful that her nieces and nephews were not bitten also as they were all at the same birthday republican. She is glad it ws her and not the kids. Time spent with patient 7 minutes
--- NOTE | 2021-02-06 11:51 | P.PN_ITS ---
Subjective Subjective: Interval history: She is doing about the same, there was mild pink expansion about three quarters of an inch around the proximal rim of the erythematous rash on the posterior medial distal left thigh. She denies chills or fever. No drainage from the wound. Vitals/I&O/Wt Last Vital Signs Temp 98.6 F 02/06/21 07:50 Pulse 75 02/06/21 07:50 Resp 14 02/06/21 07:50 BP 114/68 02/06/21 07:50 Pulse Ox 98 02/06/21 07:50 02/05/21 02/06/21 02/06/21 22:59 06:59 14:59 Intake Total 250 / 250 700 / 700 Output Total 0 / 0 Balance 250 / 250 700 / 700 Weight last 48 hrs Weight 65.771 kg Physical Exam 2 Const: COMMON NORMALS: no acute distress and patient oriented x3 HENMT: COMMON NORMALS: oropharynx normal Neck/C-Spine: COMMON NORMALS: no JVD Resp: COMMON NORMALS: normal respiratory effort and clear to auscultation bilaterally AUSCULTATION: clear to auscultation bilaterally Cardio: COMMON NORMALS: no JVD, regular rhythm, S1 normal heart sound present, S2 normal heart sound present and No murmurs present (Cardio) RHYTHM: regular rhythm HEART SOUNDS: S1 normal heart sound present and S2 normal heart sound present GI: COMMON NORMALS: Normal to inspection, nondistended, normoactive bowel gwen nds present, Soft to palpation and non-tender PALPATION: Yes Soft to palpation Extremity: COMMON NORMALS: no joint enlargement and no pedal edema Neuro: COMMON NORMALS: patient oriented x3 and moves all extremities Skin: LESIONS: lesion noted (Ulcer closer to the center of the distal part of the rash, 3 cm, no drainag) RASHES: rashes noted (Rash/patch, irregular border of about 30 x 15 cm on distal post med L thigh) Data : 02/06/21 08:21 02/05/21 21:59 Micro: Microbiology 02/05/21 23:10 Blood Culture - Preliminary Blood SPECIMEN COLLECTED 02/05/21 21:59 Blood Culture - Preliminary Blood SPECIMEN COLLECTED A&P Assessment and plan (1) Cellulitis: Cellulitis with central ulceration at the site of the suspected spider bite. Some expansion of erythema about three quarters of an inch proximally, but not red, pinkish in coloration. Otherwise appears stable. No systemic symptoms at this time. Due to expansion, continue IV antibiotics at this time. Continue anti- inflammatories. CT findings reviewed, appreciated, discussed with her, discussed obtaining surgical assessment for possibility of need of drainage with posterior thigh/popliteal collection not excluded on CT. She understands the plan and agrees to proceed. Status: Acute (2) Brown recluse spider bite: Status: Acute Qualifiers: Encounter type: initial encounter Injury intent: accidental or unintentional Qualified Code(s): T63.331A - Toxic effect of venom of brown recluse spider, accidental (unintentional), initial encounter Attestations Medical Necessity Statement*: Continue hospitalization for assessment management of cellulitis, ulceration following suspected spider bite, additional monitoring and close reassessment, surgical assessment for possible fluid collection. 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
[2021-02-06 12:00] VITALS: BP 105/67; PULSE 71; RESP 16; TEMP 36.7; O2SAT 100
[2021-02-06 15:22] VITALS: BP 99/64; PULSE 75; RESP 16; TEMP 37; O2SAT 98
--- NOTE | 2021-02-06 15:29 | PM.CONSULT ---
Providers/Reason For Consult Consulting Physician/Specialty*: General Surgery Dr. Luciano Reason for Consult*: Spider bite left thigh Attending Physician: Sagar Guzman Primary Care Provider: Mari Cline DO History of Present Illness History of Present Illness Carolyn Mullen is a 30 year old female who had a brown recluse spider bite 6 days ago. She was seen in the ER on 01/31/2021 and discharged home on oral antibiotics but presented to the ER again on 02/05/2021 with worsening redness. Patient denies any fevers or chills. She is not a diabetic. She was there for admitted to the hospital for IV antibiotics. Review of Systems General: Reports: 10 or more systems reviewed and unremarkable except in HPI and below Meds/Allergies Home Medications and Allergies Home Medications Medication Instructions Recorded Confirmed Last Taken Type clindamycin HCl 300 mg PO TID 02/06/21 02/06/21 Unknown History norgestimate-ethinyl estradiol 1 tab PO DAILY 02/06/21 02/06/21 Unknown History [Tri-Sprintec (28)] Allergies Allergy/AdvReac Type Severity Reaction Status Date / Time No Known Allergies Allergy Verified 01/31/21 22:46 Current Medications Current Medications Generic Name Dose Route Start Last Admin Trade Name Freq PRN Reason Stop Dose Admin Diphenhydramine HCl 25 mg 02/06/21 03:29 02/06/21 09:12 Diphenhydramine 25 Mg Capsule PO 25 mg Q4H PRN Administration ITCHING Ferrous Sulfate 325 mg 02/06/21 09:00 02/06/21 09:12 Ferrous Sulfate Ec 325 Mg Tablet PO 325 mg DAILY BAO Administration Sodium Chloride 1,000 mls @ 75 mls/hr 02/06/21 03:29 02/06/21 03:47 Sodium Chloride 0.9% IV 75 mls/hr .[id number] BAO Administration Vancomycin/PEG/NADA/Lysine/Water 1,500 mg in 300 mls @ 150 mls/hr 02/06/21 10:00 02/06/21 11:20 Vancocin IV Infused Q12H BAO Infusion PFSH Acute PFSH: Medical History No active medical problems Surgical History No pertinent past surgical history Family History Denies family history of CAD (coronary artery disease) Chronic kidney disease (CKD) Social History Smoking and tobacco status: never smoked Alcohol intake: never Substance/Drug Use: never Household members: spouse Housing: House Female Reproductive History: Date of last menstrual period: 01/15/21 Vitals/I&O/Wt Last Vital Signs Temp 98.6 F 02/06/21 15:22 Pulse 75 02/06/21 15:22 Resp 16 02/06/21 15:22 BP 99/64 02/06/21 15:22 Pulse Ox 98 02/06/21 15:22 02/06/21 02/06/21 02/06/21 06:59 14:59 22:59 Intake Total 250 / 250 940 / 940 Output Total 0 / 0 Balance 250 / 250 940 / 940 Weight last 48 hrs Weight 145 lb Physical Exam Narrative: EXAM NARRATIVE: HEENT: Normocephalic Eye: Sclera /conjunctiva normal Abdomen: Soft to palpation Neurological: Oriented to place person and time Skin: Intact, cellulitis involving the medial aspect of left thigh. Area is soft to palpation, there is small eschar, no underlying abscess Data Micro: Micro: Microbiology 02/05/21 23:10 Blood Culture - Pr eliminary Blood [facility] 02/05/21 21:59 Blood Culture - Pr eliminary Blood SPECIMEN [facility] A&P Assessment and plan (1) Cellulitis: 30-year-old female with cellulitis of left thigh/ popliteal fossa secondary to brown recluse spider bite. Her white count is 13.1. I reviewed the CT performed on 02/05/2021 which showed cellulitis but no obvious evidence of abscess. On physical exam there is no evidence of abscess and at this point we will therefore continue with IV antibiotics. 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
[2021-02-06 20:00] VITALS: BP 112/79; PULSE 83; RESP 20; TEMP 36.6; O2SAT 100
[2021-02-07] VITALS: BP 94/58; PULSE 72; RESP 18; TEMP 36.9; O2SAT 100
[2021-02-07 04:00] VITALS: BP 98/62; PULSE 69; RESP 18; TEMP 36.5; O2SAT 99
--- NOTE | 2021-02-07 04:12 | PC.NURSE ---
SHIFT NOTE patient rested most of this shift, ambulated out in carreon, verbalized noticing darkening discoloration around spider bite when ambulating and resolves when laying down. area remained hot and bright red, no raised swelling noted,
[2021-02-07] MEDS: sodium chloride 0.9% 1,000 ML 75 ML IV (06:03)
[2021-02-07 06:38] LABS: Basophils % 0.4 %; Eosinophils # 0.3 10^3/uL (0.0-0.8); Eosinophils % 2.8 %; Hematocrit 37.3 % (37.0-47.0); Hemoglobin 11.8 g/dL (11.5-15.3); Lymphocytes # 2.6 10^3/uL (0.8-4.8); Lymphocytes % 25.6 %; Mean Corpuscular HGB Conc 31.6 g/dL (30.0-36.0); Mean Corpuscular Hemoglobin 30.3 pg (28.0-34.0); Mean Corpuscular Volume 95.6 fL (81-99); Mean Platelet Volume 9.5 fL (7.4-10.4); Monocytes # 0.7 10^3/uL (0.2-0.9); Monocytes % 6.9 %; Neutrophils # 6.45 10^3/uL (1.8-7.7); Neutrophils % 63.9 %; Nucleated Red Blood Cells % 0 %; Platelet Count 259 10^3/cmm (130-400); Red Cell Distribution Width 13.2 % (12.1-15.1); White Blood Count 10.1 10^3/uL (4.0-10.0)
[2021-02-07 07:04] LABS: Anion Gap 15.1 (5-19); Blood Urea Nitrogen 7 mg/dL (6-20); Calcium 7.9 mg/dL (8.5-10.5); Carbon Dioxide 20 mmol/L (22-29); Chloride 108 mmol/L (98-107); Creatine Phosphokinase 33 U/L (26-192); Creatinine Clr Calc Pharmacy 136.3837; Glucose 84 mg/dL (65-115); Osmolality Calculated 285 mOsm/kg (285-295); Potassium 4.1 mmol/L (3.5-5.1); Sodium 139 mmol/L (136-145)
[2021-02-07 07:55] VITALS: BP 118/78; PULSE 77; RESP 14; TEMP 37; O2SAT 98
[2021-02-07] MEDS: ferrous sulfate EC 325 mg Tablet PO (10:17)
[2021-02-07] MEDS: diphenhydrAMINE 25 mg Capsule PO (10:17)
[2021-02-07] MEDS: vancomycin 1,500 MG/300 ML PIGGYBACK 150 MG IV (10:18)
[2021-02-07 11:18] VITALS: BP 105/70; PULSE 78; RESP 16; TEMP 36.9; O2SAT 99
[2021-02-07 13:03] VITALS: BP 105/70; PULSE 78; RESP 16; TEMP 36.9; O2SAT 99
--- NOTE | 2021-02-07 13:10 | P.DS_ITS ---
Discharge Providers Date of Admission: 02/06/21 01:49 Date of Discharge: February 07, 2021 Attending Provider at Admission: Veto Gonsalez MD Attending Provider at Discharge: Sagar Guzman Primary Care Provider: Mari Cline DO Diagnoses at Discharge Discharge Diagnosis (1) Cellulitis: Status: Acute Reason for Visit Reason for Visit: spider bite Hospital Course Hospital Course Pleasant 30-year-old lady was hospitalized for treatment observation of wor sening cellulitis on distal posterior medial left thigh after having some itching around the back of the left knee, noticing a bite which looked like could have been a spider bite. She was treated by her PCP initially by Bactrim, subsequently switched to clindamycin, however, with increasing erythema she came for evaluation to the hospital. CT lower extremity showed subcutaneous stranding opacity seen in the medial aspect of the distal left thigh extending into the left knee medially, subcutaneous fluid attenuation seen and popliteal fossa likely corresponding to the bite wound, a developing abscess cannot be entirely excluded. She was seen by surgery/wound care, at this time drainable abscess was not identified. Erythema with mild extension initially, today appears stabilized without further increase in size. She was treated with vancomycin in the hospital. Has been no drainage from the wound. She has had no systemic symptoms of sepsis. She is feeling much better, and wanting to return home. She is asked to complete antibiotic course together with completion of the 10-day prescribed course of clindamycin, and is given additional coverage with 6 days of cephalexin. She is asked to follow-up in wound care on Tuesday for reassessment, in the meantime was instructed by wound care physician to apply warm compresses. (Please note on medication reconciliation clindamycin is listed as stopped, this cannot be changed currently as it is finalized, however, instructions provided to nursing staff, patient to continue and complete clindamycin course alongside cephalexin for additional MRSA coverage.) Physical Exam Const: COMMON NORMALS: no acute distress and patient oriented x3 HENMT: COMMON NORMALS: oropharynx normal Neck/C-Spine: COMMON NORMALS: no JVD Resp: COMMON NORMALS: normal respiratory effort and clear to auscultation bilaterally AUSCULTATION: clear to auscultation bilaterally Cardio: COMMON NORMALS: no JVD, regular rhythm, S1 normal heart sound present, S2 normal heart sound present and No murmurs present (Cardio) RHYTHM: regular rhythm HEART SOUNDS: S1 normal heart sound present and S2 normal heart sound present GI: COMMON NORMALS: Normal to inspection, nondistended, normoactive bowel sounds present, Soft to palpation and non-tender PALPATION: Yes Soft to palpation Extremity: COMMON NORMALS: no joint enlargement and no pedal edema Neuro: COMMON NORMALS: patient oriented x3 and moves all extremities Skin: COMMON NORMALS: no rashes or lesions noted GENERAL SKIN EXAM: no rashes or lesions noted LESIONS: lesion noted (Ulcer closer to the center of the distal part of the rash, 3 cm, no drainag) RASHES: rashes noted (Rash/patch, irregular border unchanged on distal post med L thigh) Discharge Data Data Completed and Pending: Completed Studies During Hospitalization Category Date Time Status CT lower leg LT w con [id number] Urgent Cat Scan 02/05/21 23:17 Completed Pending at discharge Category Date Time Status Basic Metabolic P kylee AM LABS Lab 02/08/21 04:00 Ordered Basic Metabolic P kylee AM LABS Lab 02/09/21 04:00 Ordered Blood Culture Sta t Lab 02/05/21 23:10 Results Complete Blood Co unt w/Auto AM LABS Lab 02/08/21 04:00 Ordered Complete Blood Co unt w/Auto AM LABS Lab 02/09/21 04:00 Ordered Vancomycin Trough Timed Lab 02/07/21 20:00 Ordered Labs from last 24 hours 02/07/21 02/07/21 05:13 05:13 WBC 10.1 H RBC 3.90 L Hgb 11.8 Hct 37.3 MCV 95.6 MCH 30.3 MCHC 31.6 RDW 13.2 Plt Count 259 MPV 9.5 Neut % (Auto) 63.9 Lymph % (Auto) 25.6 [place] % (Auto) 6.9 Eos % (Auto) 2.8 Baso % (Auto) 0.4 Neut # (Auto) 6.45 Lymph # (Auto) 2.6 [place] # (Auto) 0.7 Eos # (Auto) 0.3 Baso # (Auto) 0.0 Nucleated RBC % (a uto) 0 Nucleated RBCs # 0.0 Sodium 139 Potassium 4.1 Chloride 108 H Carbon Dioxide 20 L Anion Gap 15.1 BUN 7 Creatinine 0.6 GFR Calculation 119.0 Glucose 84 Calculated Osmolal ity 285 Calcium 7.9 L Creatine Kinase 33 Vitals: Last Vital Signs Temp 98.5 F 02/07/21 13:03 Pulse 78 02/07/21 13:03 Resp 16 02/07/21 13:03 BP 105/70 02/07/21 13:03 Pulse Ox 99 02/07/21 13:03 Discharge Plan Discharge Patient Disposition: Home Condition: Stable Prescriptions: New cephalexin 500 mg capsule 500 mg PO BID 6 Days Qty: 12 RF: 0 aspirin 81 mg tablet,delayed release (DR/EC) 81 mg PO DAILY Qty: 7 RF: 0 Continued Tri-Sprintec (28) 0.18/0.215/0.25 mg-35 mcg (28) tablet 1 tab PO DAILY RF: 0 Discontinued clindamycin HCl 300 mg capsule 300 mg PO TID RF: 0 Discharge Orders: Discharge Order (Routine); Ordered 02/07/21 Ordered By: Sagar Guzman Referrals: Jose Juan Luciano MD [Physician] - 02/13/21 (Please call wound care to set up an appointment to be seen on 02/13 In wound care [phone]) Mari Cline DO [Primary Care Provider] - 4-7 days (Please call Tuesday to schedule a follow up appointment. ) Patient Instructions: Cephalexin (By mouth), Cellulitis (DC), Brown Recluse Spider Bite (DC), Opioid Safety Activity Restrictions/Additional Instructions: Please continue your previous home medications. Complete the clindamycin course and cephalexin is added for additional 6 days. Please follow-up with surgery Dr. Luciano in wound care on Tuesday. Apply warm compresses. In case you notice worsening erythema, severe pain, fever, any other concerning symptoms, please seek medical attention. Discharge Attestations Time Spent in Discharge Care*: greater than 30 min Quality Metrics Clinical Quality Measures During this hospital stay, did patient experience: None Coding Level of Care Code Acute Chg FW DC note Diagnoses Cellulitis L03.90
--- NOTE | 2021-02-07 14:30 | PM.PN ---
Vitals/I&O/Wt Last Vital Signs Temp 98.5 F 02/07/21 13:03 Pulse 78 02/07/21 13:03 Resp 16 02/07/21 13:03 BP 105/70 02/07/21 13:03 Pulse Ox 99 02/07/21 13:03 02/06/21 02/07/21 02/07/21 22:59 06:59 14:59 Intake Total 1000 / 3148.75 1208.75 / 3148.75 660 / 660 Output Total 0 / 0 Balance 1000 / 3148.75 1208.75 / 3148.75 660 / 660 Weight last 48 hrs Weight 145 lb Physical Exam Narrative: EXAM NARRATIVE: Left lower extremity: Erythema is mildly improved, soft, tender, no significant area of induration or fluctuance noted Data : 02/07/21 05:13 02/07/21 05:13 Micro: Microbiology 02/05/21 23:10 Blood Culture - Preliminary Blood NEGATIVE TO DATE 02/05/21 21:59 Blood Culture - Preliminary Blood NEGATIVE TO DATE A&P Assessment and plan (1) Cellulitis: 30-year-old female with cellulitis of left thigh/ popliteal fossa secondary to brown recluse spider bite. Her white count is 10.1 today. On physical exam there is no evidence of abscess that needs to be drained or wound that needs to be debrided. She is keen to go home, I will see her back in my office this coming Tuesday. Advised to apply warm compress Discharged home on oral antibiotics. 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
== END 2021-02-07 13:00 | disposition home or self-care (01) ==
LOC: ER 02-06 01:44 → MEDSURG 02-06 02:01
PROVIDERS: Admitting Provider Internal Medicine; Emergency Provider Physician Assistant; PCP Family Medicine; Visit Provider Internal Medicine
DX: L03.90 Cellulitis, unspecified (principal); T63.331A Toxic effect of venom of brown recluse spider, accidental (unintentional), initial encounter
CPT/HCPCS: 36415; 73701; 80048; 80053; 82550; 83605; 84145; 85025; 86140; 87040; 96361; 96365; 96375; 99285; G0378; J1200; J3370; J7030; J7050; Q9967

== ENCOUNTER 2022-02-20 09:04 | Outpatient (CLI) | payer OTHER, BC, MEDICAID, SELFPAY ==
[2022-02-20 09:21] VITALS: BP 122/69; PULSE 76
[2022-02-20 09:23] VITALS: RESP 17
[2022-02-20 09:24] VITALS: TEMP 35.8
[2022-02-20 09:25] VITALS: BMI 23.8
[2022-02-20 09:39] VITALS: BP 99/56; PULSE 78
[2022-02-20 09:54] VITALS: BP 90/54; PULSE 81
== END 2022-02-20 10:05 | disposition home or self-care (01) ==
LOC: OPOB 09:13 → OBGYN 09:16
PROVIDERS: PCP Family Medicine; Visit Provider Family Medicine
DX: O26.899 Other specified pregnancy related conditions, unspecified trimester (principal); Z91.81 History of falling; M25.572 Pain in left ankle and joints of left foot
CPT/HCPCS: 59025; 99211

== ENCOUNTER 2022-02-20 10:06 | Emergency (ER) | payer MEDICAID, SELFPAY ==
[2022-02-20 10:31] VITALS: BP 110/71; PULSE 81; RESP 14; TEMP 36.6; O2SAT 98; BMI 23.8
--- NOTE | 2022-02-20 10:37 | XRR_ITS ---
PROCEDURE INFORMATION: Exam: XR Left Ankle Exam date and time: 02/20/2022 11:00 AM Age: 31 years old Clinical indication: Injury or trauma; Fall; Blunt trauma; Ankle; Left TECHNIQUE: Imaging protocol: Radiologic exam of the Left ankle. Views: 3 or more views. COMPARISON: No relevant prior studies available. FINDINGS: Bones/joints: Negative for acute bony abnormality Soft tissues: Normal. XR/XR ankle LT min 3V* [id number] IMPRESSION: No acute findings.
[2022-02-20 11:00] VITALS: BP 111/98; PULSE 95; O2SAT 98
--- NOTE | 2022-02-22 06:48 | ED_ITS ---
HPI - Extremity Problem General: Chief complaint: Extremity Injury, Lower Stated complaint: fall left ankle pain Time Seen by Provider: 02/20/22 10:37 Source: patient Mode of arrival: ambulatory Limitations: no limitations History of Present Illness: 31-year-old female complaining left ankle pain. She had 30 rates chest satiated. She was walking and had an inversion injury of her left ankle. She has been able to walk on it since when she initially arrived she was evaluated in OB and sent here for further evaluation. Is complaining some mild discomfort there is no swelling no deformity MD Complaint: joint pain Onset (ago): minute(s) Pain Consistency: intermittent Location: left (Ankle) Quality: aching Radiation: none Relieving factors: nothing Exacerbating factors: nothing Associated symptoms: Deny arthralgias, chest pain, fever(s), myalgias, rash or short of breath Review of Systems Const: Denies: fever(s), chills, fatigue or malaise ENMT: Denies: nasal discharge Card: Denies: chest pain Resp: Denies: dyspnea, productive cough or non-productive cough GI: Denies: abdominal pain, nausea, vomiting, diarrhea or constipation : Denies: flank pain, difficulty voiding, dysuria, urinary frequency or urinary urgency Skin/Breast: Denies: rash PFSH ED PFSH: Medical History No active medical problems Surgical History No pertinent past surgical history Family History Denies family history of CAD (coronary artery disease) Chronic kidney disease (CKD) Social History Smoking and tobacco status: never smoked Alcohol intake: never Household members: spouse Housing: House Female Reproductive History: Date of last menstrual period: 01/15/21 Physical Exam Const: COMMON NORMALS: no acute distress GENERAL APPEARANCE: cooperative and comfortable ORIENTATION/CONSCIOUSNESS: Yes awake, Yes oriented to person, Yes oriented to place and Yes oriented to time Neck/C-Spine: COMMON NORMALS: no JVD Resp: COMMON NORMALS: normal respiratory effort, No retractions, No use of accessory muscles and clear to auscultation bilaterally AUSCULTATION: clear to auscultation bilaterally Cardio: COMMON NORMALS: no JVD, regular rate, regular rhythm and No murmurs present (Cardio) RATE: regular rate RHYTHM: regular rhythm Extremity: COMMON NORMALS: normal to inspection, capillary refill normal, no clubbing, cyanosis or edema, no calf tenderness and no pedal edema Neuro: SENSORIUM/ORIENTATION: Yes oriented to person, Yes oriented to place and Yes oriented to time Skin: COMMON NORMALS: no rashes or lesions noted GENERAL SKIN EXAM: no rashes or lesions noted Course Vital Signs: Vital signs: Vital Signs Temperature 98 F 02/20/22 10:31 Pulse Rate 95 02/20/22 11:00 Respiratory Rate 14 02/20/22 10:31 Blood Pressure 111/98 02/20/22 11:00 Pulse Oximetry 98 02/20/22 11:00 MDM - Extremity (Nontraumatic) Medical Decision Making Normal ankle x-ray. Ice compression elevation can wrap if needed can follow-up with primary care if not improving Medical Records I reviewed the patient's medical records. Lab Data I reviewed the patient's lab results. Radiology Impressions Ankle X-Ray 02/20/22 10:37 IMPRESSION: No acute findings. 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
== END 2022-02-20 11:35 | disposition home or self-care (01) ==
PROVIDERS: Emergency Provider Family Medicine; PCP Family Medicine
DX: S93.402A Sprain of unspecified ligament of left ankle, initial encounter (principal); S96.912A Strain of unspecified muscle and tendon at ankle and foot level, left foot, initial encounter; X50.1XXA Overexertion from prolonged static or awkward postures, initial encounter
CPT/HCPCS: 73610; 99283

== ENCOUNTER → 2023-11-04 17:51 | Outpatient (BNVA) | payer OTHER, MEDICAID, SELFPAY | PROVIDERS: PCP Family Medicine; Visit Provider Emergency Medicine | DX: J02.9 Acute pharyngitis, unspecified (principal) | CPT/HCPCS: 87071; 87880 ==

== ENCOUNTER 2025-07-02 00:48 | Emergency (ER) | payer OTHER, SELFPAY ==
[2025-07-02 00:52] VITALS: BP 168/86; PULSE 106; RESP 22; TEMP 36.6; O2SAT 100; BMI 25.6
[2025-07-02 02:37] LABS: Hematocrit 44.8 % (36-47); Hemoglobin 15.40 g/dL (11.27-16.99); Mean Corpuscular HGB Conc 34.4 g/dL (30-55); Mean Corpuscular Hemoglobin 30.7 pg (27-33); Mean Corpuscular Volume 89.4 fl (85-98); Nucleated Red Blood Cells % 0 %; Platelet Count 338 10^3/cmm (157-399); Red Blood Count 5.01 10^6/uL (3.85-5.65); White Blood Count 15.53 10^3/uL (3.29-11.43)
[2025-07-02 02:51] LABS: Alanine Aminotransferase 10 U/L (0-33); Albumin Level 4.7 g/dL (3.5-5.2); Alkaline Phosphatase 88 U/L (35-105); Anion Gap 20.2 (5-19); Aspartate Amino Transferase 12 U/L (0-32); Blood Urea Nitrogen 11 mg/dL (6-20); Calcium 9.5 mg/dL (8.5-10.5); Carbon Dioxide 20 mmol/L (22-29); Chloride 103 mmol/L (98-107); Globulin 3.5 g/dL (1.3-4.6); Glucose 135 mg/dL (65-115); Lipase 35 U/L (13-60); Osmolality Calculated 289 mOsm/kg (285-295); Potassium 4.2 mmol/L (3.5-5.1); Sodium 139 mmol/L (136-145); Total Protein 8.2 g/dL (6.6-8.7)
[2025-07-02 02:59] LABS: Glucose Urine UA Negative (Normal); Nitrate Urine Negative (Negative)
[2025-07-02 03:04] LABS: Add Urine Microscopic? YES
[2025-07-02 03:16] LABS: Specific Gravity, Urine 1.039 (1.005-1.030); UA Slide Review UA Slide Review Perf
--- NOTE | 2025-07-02 03:31 | CTR_ITS ---
PROCEDURE INFORMATION: Exam: CT Abdomen And Pelvis With Contrast Exam date and time: 07/02/2025 4:26 AM Age: 34 years old Clinical indication: Abdominal pain; Additional info: Ruq pain TECHNIQUE: Imaging protocol: Computed tomography of the abdomen and pelvis with contrast. Radiation optimization: All CT scans at this facility use at least one of these dose optimization techniques: automated exposure control; mA and/or kV adjustment per patient size (includes targeted exams where dose is matched to clinical indication); or iterative reconstruction. Contrast material: OMNI 350; Contrast volume: 100 ml; Contrast route: INTRAVENOUS (IV); COMPARISON: CT abdomen pelvis w con* [id number] 01/26/2020 2:08 AM RADIATION DOSE METRICS: Total DLP (mGy-cm): 440.33 FINDINGS: Lungs: Lung bases are clear as visualized. Liver: Normal. No mass. Gallbladder and biliary ducts: There are multiple gallstones within the gallbladder. No pericholecystic inflammatory changes appreciated. Pancreas: Normal. No ductal dilation. Spleen: Normal. No splenomegaly. Adrenal glands: Normal. No mass. Kidneys and ureters: Normal. No hydronephrosis. Stomach and bowel: There are air-fluid levels involving nondilated loops of small bowel. There is fecalization of distal small bowel loops. No dilated bowel is appreciated. No bowel wall thickening is noted. There is a moderate amount of stool within the colon. Appendix: No evidence of appendicitis. Intraperitoneal space: Unremarkable. No free air. No significant fluid collection. Vasculature: Unremarkable. No abdominal aortic aneurysm. Lymph nodes: Unremarkable. No enlarged lymph nodes. Urinary bladder: Unremarkable as visualized. Reproductive: There is an involuting right ovarian cyst measuring 1.7 cm in size. No abnormalities are otherwise noted with regards to the reproductive organs. Bones/joints: Unremarkable. No acute fracture. Soft tissues: There is a small fat filled periumbilical hernia. CT/CT abdomen pelvis w con* [id number] IMPRESSION: 1. Cholelithiasis. 2. Air-fluid levels involving nondilated loops of small bowel. Findings are nonspecific but could be related to an ileus/enteritis. 3. Fecalization of small bowel loops as well as moderate amount of stool within the colon suggests a degree of fecal stasis.
[2025-07-02] MEDS: morphine 4 mg/mL SDV 1 mL IVP (03:50)
[2025-07-02] MEDS: ondansetron 2 mg/ML SDV 2 mL 4 MG IVP (03:51)
[2025-07-02 03:55] LABS: CRP High Sensitivity Cardiac 0.160 mg/dL (0.0-0.3); Magnesium 2.0 mg/dL (1.7-2.3)
[2025-07-02 04:10] LABS: HCG Qualitative Urine. Negative (Negative)
[2025-07-02] MEDS: iohexol 350 mg/mL 500 mL Btl (per mL) IV (04:27)
[2025-07-02 04:46] VITALS: BP 113/58; PULSE 76; O2SAT 100
--- NOTE | 2025-07-02 04:58 | W.ED.ABDPA2 ---
HPI - Abdominal Pain General: Chief Complaint: Abdominal Pain Stated Complaint: ABD PAIN Time Seen by Provider: 07/02/25 02:22 History of Present Illness: Patient is a female with no past medical history who presents to the ED with 1 day of diffuse abdominal pain and nausea. She denies vomiting and fever. Has had no actual vomiting, no constipation or diarrhea, no chills, diaphoresis, has had a slightly decreased p.o. intake over this day. She has had an episode of symptomatic cholelithiasis previously, has not seen a surgeon. Associated Symptoms: Reports nausea Related Data Previous Rx's ?Medication ?Instructions ?Recorded ondansetron 4 mg disintegrating 4 mg PO Q8H 5 days #15 tabs 07/02/25 tablet oxycodone 5 mg tablet 5 mg PO Q8H PRN pain #8 tabs 07/02/25 polyethylene glycol 3350 17 4 g PO DAILY #119 grams 07/02/25 gram/dose oral powder (Miralax) Allergies Allergy/AdvReac Type Severity Reaction Status Date / Time No Known Allergies Allergy Verified 11/04/23 17:32 Review of Systems General: Reports: 10 or more systems reviewed and unremarkable except in HPI and below Const: Reports: change in appetite GI: Reports: abdominal pain and nausea PFSH ED PFSH: Medical History (Updated 07/02/25 @ 06:06 by Jose Burger DO) No active medical problems Surgical History No pertinent past surgical history Family History Denies family history of CAD (coronary artery disease) Chronic kidney disease (CKD) Social History Smoking and tobacco/nicotine status: never used tobacco/nicotine Alcohol intake: never Substance/Drug Use: never Household members: spouse Housing: House Physical Exam Narrative: EXAM NARRATIVE: Well-appearing, mildly tachycardic, afebrile, normotensive, no acute distress. Abdomen mildly distended, diffuse upper abdominal and lower abdominal tenderness, Pacheco and McBurney sign negative, bowel sounds decreased, no overlying skin changes, no CVA tenderness. Sinus tachycardia but no murmurs, no leg swelling, slightly delayed cap refill, 2+ pulses throughout, dry mucous membranes. Breathing comfortably on room air, saturating well, GCS 15. Course Vital Signs: Vital signs: Vital Signs Temperature 97.9 F 07/02/25 00:52 Pulse Rate 76 07/02/25 04:46 Respiratory Rate 22 H 07/02/25 00:52 Blood Pressure 113/58 07/02/25 04:46 Pulse Oximetry 100 07/02/25 04:46 Oxygen Delivery Me thod Room Air 07/02/25 04:46 MDM - Abdominal Pain Medical Decision Making -ddx: Symptomatic cholelithiasis, cholecystitis, choledocholithiasis, hepatitis, pancreatitis, SBO, ileus, constipation, enteritis, intra-abdominal abscess, dehydration, electrolyte abnormality - Patient with 1 day of GI symptoms, mildly tachycardic but does not appear septic and nontoxic at this time, has some diffuse abdominal pain, history of gallstones, will administer fluids, pain and nausea control, get CT scan and abdominal labs and reassess. - On CT scan, she was found to have large gallstones but no impaction, no concerns for ductal dilation, no signs of acute infection and most likely just asymptomatic cholelithiasis. She had increased stool in her rectal vault but has had a recent bowel movement, no severe signs of obstruction and will not give an enema or disimpact at this time. Also had some small bowel inflammation consistent with a mild enteritis. Her UA was also grossly positive for UTI. Reassuring inflammatory markers,, had a small HAGMA, most likely secondary to her dehydration, no BILLIE at this time. Patient felt improved after above medications, she was started on Rocephin for her UTI and was able to p.o. challenge successfully, she was then stable for discharge on a continued course of Keflex, given antiemetics and instructed to start on a bowel regimen to normalize her bowel movements so the fecal stasis did not turn into stercoral colitis or an impaction, discharged home with father at bedside and encouraged to follow-up with surgery outpatient if she continues to develop biliary colic pains. Strict return precautions given. Lab Data 07/02/25 02:25 07/02/25 02:25 Labs/Radiology: Radiology Impressions Abdomen/Pelvis CT 07/02/25 03:31 IMPRESSION: 1. Cholelithiasis. 2. Air-fluid levels involving nondilated loops of small bowel. Findings are nonspecific but could be related to an ileus/enteritis. 3. Fecalization of small bowel loops as well as moderate amount of stool within the colon suggests a degree of fecal stasis. Laboratory Results WBC 15.53 10^3/uL (3.29-11.43) H 07/02/25 02:25 RBC 5.01 10^6/uL (3.85-5.65) 07/02/25 02:25 Hgb 15.40 g/dL (11.27-16.99) 07/02/25 02:25 Hct 44.8 % (36-47) 07/02/25 02:25 MCV 89.4 fl (85-98) 07/02/25 02:25 MCH 30.7 pg (27-33) 07/02/25 02:25 MCHC 34.4 g/dL (30-55) 07/02/25 02:25 RDW 12.5 % (12.1-15.1) 07/02/25 02:25 Plt Count 338 10^3/cmm (157-399) 07/02/25 02:25 MPV 8.9 fL (7.4-10.4) 07/02/25 02:25 Neut % (Auto) 84.3 % 07/02/25 02:25 Lymph % (Auto) 9.4 % 07/02/25 02:25 [place] % (Auto) 5.3 % 07/02/25 02:25 Eos % (Auto) 0.3 % 07/02/25 02:25 Baso % (Auto) 0.3 % 07/02/25 02:25 Neut # (Auto) 13.10 10^3/uL (1.8-7.7) H 07/02/25 02:25 Lymph # (Auto) 1.5 10^3/uL (0.8-4.8) 07/02/25 02:25 [place] # (Auto) 0.8 10^3/uL (0.2-0.9) 07/02/25 02:25 Eos # (Auto) 0.0 10^3/uL (0.0-0.8) 07/02/25 02:25 Baso # (Auto) 0.1 10^3/uL (0.0-0.1) 07/02/25 02:25 Nucleated RBC % (auto) 0 % 07/02/25 02:25 Nucleated RBCs # 0.0 /100WBC 07/02/25 02:25 Sodium 139 mmol/L (136-145) 07/02/25 02:25 Potassium 4.2 mmol/L (3.5-5.1) 07/02/25 02:25 Chloride 103 mmol/L (98-107) 07/02/25 02:25 Carbon Dioxide 20 mmol/L (22-29) L 07/02/25 02:25 Anion Gap 20.2 (5-19) H 07/02/25 02:25 BUN 11 mg/dL (6-20) 07/02/25 02:25 Creatinine 0.6 mg/dL (0.5-0.9) 07/02/25 02:25 GFR Calculation 115.9 mL/min (90-130) 07/02/25 02:25 Glucose 135 mg/dL (65-115) H 07/02/25 02:25 Calculated Osmolality 289 mOsm/kg (285-295) 07/02/25 02:25 Calcium 9.5 mg/dL (8.5-10.5) 07/02/25 02:25 Phosphorus 4.0 mg/dL (2.5-4.5) 07/02/25 02:25 Magnesium 2.0 mg/dL (1.7-2.3) 07/02/25 02:25 Total Bilirubin 0.3 mg/dL (0.15-1.2) 07/02/25 02:25 AST 12 U/L (0-32) 07/02/25 02:25 ALT 10 U/L (0-33) 07/02/25 02:25 Alkaline Phosphatase 88 U/L (35-105) 07/02/25 02:25 C-React Prot High Sens 0.160 mg/dL (0.0-0.3) 07/02/25 02:25 Total Protein 8.2 g/dL (6.6-8.7) 07/02/25 02:25 Albumin 4.7 g/dL (3.5-5.2) 07/02/25 02:25 Globulin 3.5 g/dL (1.3-4.6) 07/02/25 02:25 Lipase 35 U/L (13-60) 07/02/25 02:25 HCG, Qual Negative (Negative) 07/02/25 02:46 Urine Color Yellow (Yellow) 07/02/25 02:46 Urine Appearance Turbid (CLEAR) A 07/02/25 02:46 Urine pH 5.5 (5-7) 07/02/25 02:46 Ur Specific [place] 1.039 (1.005-1.030) H 07/02/25 02:46 Urine Protein 1+ (Negative) A 07/02/25 02:46 Urine Glucose (UA) Negative (Normal) 07/02/25 02:46 Urine Ketones Trace (Negative) 07/02/25 02:46 Urine Blood Negative (Negative) 07/02/25 02:46 Urine Nitrate Negative (Negative) 07/02/25 02:46 Urine Bilirubin Negative (Negative) 07/02/25 02:46 Urine Urobilinogen 1.0 mg/dL (Negative) 07/02/25 02:46 Ur Leukocyte Esterase 1+ (Negative) A 07/02/25 02:46 Urine RBC 11-20 /hpf (0-2) H 07/02/25 02:46 Urine WBC 21-50 /hpf (0-5) H 07/02/25 02:46 Ur Squamous Epith Cells 11-20 /hpf (0-5) H 07/02/25 02:46 Calcium Oxalate Crystal 25-40 /hpf H 07/02/25 02:46 Amorphous Sediment Not Reportable 07/02/25 02:46 Urine Bacteria 1+ /hpf (NONE) H 07/02/25 02:46 Hyaline Casts 1.21 /lpf 07/02/25 02:46 Urine Mucus 2+ /hpf 07/02/25 02:46 Urine Yeast Trace /hpf 07/02/25 02:46 All radiology interpretation(s) finalized by discharge Discharge Plan Discharge Patient Disposition: Home Clinical Impression: Symptomatic cholelithiasis, Constipation, Enteritis Condition: Stable Prescriptions: New oxycodone 5 mg tablet 5 mg PO Q8H PRN (Reason: pain) Qty: 8 0RF polyethylene glycol 3350 [Miralax] 17 gram/dose powder 4 g PO DAILY Qty: 119 0RF ondansetron 4 mg tablet,disintegrating 4 mg PO Q8H 5 Days Qty: 15 0RF Discharge Orders: Discharge ED (Routine); Ordered 07/02/25 Ordered By: Jose Burger Referrals: Mari Cline DO [Primary Care Provider, Family Practice] Discharge Diet: Advance as tolerated Discharge Activity: Resume usual activity Patient Instructions: Abdominal Pain (ED), Opioid Safety, Pain Management, Patient Portal & [facility] Instructions Activity Restrictions/Additional Instructions: You were seen for your abdominal pain, you were evaluated with labs and a CT scan which were ultimately reassuring for no emergent conditions today, your symptoms were mostly be caused by combination of your gallstones, a small intestine infection and a degree of constipation, you improved with fluid nausea and pain medicine. To continue to treat your symptoms, alternate Tylenol 650 mg and ibuprofen 400mg every 4 hours as needed, use the oxycodone 5 mg every 8 hours as needed on top of this for breakthrough pain, do not drive or operate heavy machinery with this medication. For any nausea, use the Zofran 4 mg every 8 hours as needed. Use a scoop of MiraLAX daily to help promote regular bowel movements, in addition, take senna or another [id number] stool softener to help promote a bowel movement as well. Make a follow-up appointment with the surgery clinic to further discuss potentially surgically removing your gallbladder to help with your symptoms. Return to the ED with severe worsening of her pain, continuous vomiting, inability to eat or drink, inability to have a bowel movement in the next few days, or any other emergent concerns. Stand Alone Forms: Work/School Release Print Language: Azeri Coding Level of Care Code ED Bell Ringer for Yaz Chow
== END 2025-07-02 06:34 | disposition home or self-care (01) ==
PROVIDERS: Emergency Provider Student in an Organized Health Care Education/Training Program; PCP Family Medicine
DX: K80.80 Other cholelithiasis without obstruction (principal); K59.00 Constipation, unspecified; K52.9 Noninfective gastroenteritis and colitis, unspecified
CPT/HCPCS: 36415; 74177; 80053; 81001; 81025; 83690; 83735; 84100; 85025; 86141; 96374; 96375; 99285; J2270; J2405; J7030